=== PATIENT | male | born 1995 | race Caucasian/White ===

== ENCOUNTER 2019-03-18 15:55 | Observation (INO) | payer OTHER ==
[~2019-03-18] VITALS: Ht 172.7 cm; Wt 92.3 kg
[~2019-03-18 15:55] MED LIST: ADDERALL XR30 MG PO; LUVOX25 MG PO
[2019-03-18 16:27] LABS: COLLECTION METHOD CLEAN CATCH
[2019-03-18 16:31] LABS: BASO % 0.4 % (0.0-2.0); EOS # 0.1 (0.0-0.7); EOS % 1.3 % (0-4.0); GRAN # 7.6 (1.4-6.5); GRAN % 80.2 % (42.2-75.2); HEMATOCRIT 50.3 % (42.0-52.0); HEMOGLOBIN 16.6 g/dl (13.5-18.0); LYMPH # 1.1 (1.2-3.4); LYMPH % 11.2 % (20.0-51.0); MEAN CELL VOLUME 81 fl (80.0-100.0); MEAN CORPUSCULAR HEMOGLOBIN 27 pg (27.0-31.0); MEAN CORPUSCULAR HGB CONC 33 g/dl (33.0-37.0); MEAN PLATELET VOLUME 9.2 fl (7.4-10.4); MONO # 0.6 (0.1-0.6); MONO % 6.6 % (1.7-9.3); PLATELET COUNT 274 K/mm3 (130-400); RED BLOOD COUNT 6.23 M/mm3 (4.20-5.60); REDCELL DISTRIBUTION WIDTH-CV 14.5 % (11.5-14.5)
[2019-03-18 16:37] LABS: MUCOUS Present /lpf; PH 6 (5-8); SQUAMOUS EPITHELIAL None Seen /hpf; URINE APPEARANCE Clear; URINE BACTERIA None Seen /hpf; URINE BILIRUBIN Negative (NEGATIVE); URINE BLOOD Negative (NEGATIVE); URINE COLOR Yellow; URINE GLUCOSE Negative (NEGATIVE); URINE KETONE Negative (NEGATIVE); URINE LEUKOCYTE ESTERASE Negative (NEGATIVE); URINE NITRATE Negative (NEGATIVE); URINE PROTEIN(semi-quant) Negative (NEGATIVE); URINE RBC 0-2 /hpf; URINE UROBILINOGEN Negative (NEGATIVE)
[2019-03-18 16:54] LABS: ALBUMIN 4.8 gm/dL (3.5-5.0); BILIRUBIN,TOTAL 0.5 mg/dL (0.0-1.0); CALCIUM 9.8 mg/dL (8.4-10.2); CREATININE, serum 0.65 (0.66-1.25); POTASSIUM 4.3 mmol/L (3.4-5.0); TOTAL PROTEIN 7.7 gm/dL (6.4-8.2)
--- NOTE | 2019-03-18 22:35 | NUR ---
PT ADMITTED FROM PACU FOLLOWING HERNIA REPAIR. PT IS ALERT, OX4; REPORTS PAIN IS CONTROLLED AT THIS TIME. PARENTS ACCOMPANY PT TO ROOM. INCISIONS TO ABDOMEN X3 WITH BANDAIDS IN PLACE, CDI. IVF INFUSING TO R AC WITHOUT ISSUES. PT DENIES ANY NEEDS AT THIS TIME. CALL LIGHT WITHIN REACH.
[2019-03-18 23:16] VITALS: BP 127/78; PULSE 101
[2019-03-18 23:31] VITALS: BP 146/80; PULSE 111
[2019-03-18 23:46] VITALS: BP 140/86; PULSE 105
[2019-03-19] VITALS (12 sets, daily range): BP systolic 105–150; BP diastolic 53–89; PULSE 80–112; TEMP 97.6–100.4
--- NOTE | 2019-03-19 05:47 | NUR ---
PT STOOD AT BEDSIDE WITH MINIMAL ASSIST TO ATTEMPT TO URINATE. PT WAS UNABLE AT THIS TIME. ASSISTED BACK TO BED, CALL LIGHT WITHIN REACH. ICE PACK APPLIED TO ABDOMEN. MOTHER REMAINS AT PT BEDSIDE.
[2019-03-19 06:18] LABS: BASO % 0.3 % (0.0-2.0); EOS # 0.1 (0.0-0.7); EOS % 1.2 % (0-4.0); GRAN # 6.5 (1.4-6.5); GRAN % 75.3 % (42.2-75.2); LYMPH # 1.2 (1.2-3.4); LYMPH % 14.1 % (20.0-51.0); MEAN CELL VOLUME 81 fl (80.0-100.0); MEAN CORPUSCULAR HEMOGLOBIN 27 pg (27.0-31.0); MEAN CORPUSCULAR HGB CONC 33 g/dl (33.0-37.0); MEAN PLATELET VOLUME 9.7 fl (7.4-10.4); MONO # 0.7 (0.1-0.6); MONO % 8.6 % (1.7-9.3); PLATELET COUNT 245 K/mm3 (130-400); RED BLOOD COUNT 5.31 M/mm3 (4.20-5.60); REDCELL DISTRIBUTION WIDTH-CV 14.3 % (11.5-14.5)
[2019-03-19 06:23] LABS: HEMOGLOBIN 14.2 g/dl (13.5-18.0)
--- NOTE | 2019-03-19 06:32 | NUR ---
PT SLEPT AT PERIODS THROUGH THE NIGHT. WOKE UP SEVERAL TIMES EARLY THIS AM REPORTING ABDOMINAL PAIN WITH PEAK AT 10/10, IV PAIN MEDICATIONS WERE ADMINISTERED REQUESTED BY PT AND MOTHER. PO OXYCODONE ALSO ADMINISTERED WITH PT REPORTING THIS MEDICATION DOES NOT WORK FOR HIM. MOTHER REMAINS AT PT BEDSIDE THROUGH THE NIGHT. ICE PACK APPLIED TO ABDOMINAL INCISIONS. INCISIONS ARE COVERED WITH BANDAIDS AND REMAIN CDI. VS REMAIN STABLE. PT IS CURRENTLY RESTING QUIETLY WITH SIGNS OF DISTRESS. CALL LIGHT WITHIN REACH.
[2019-03-19 06:34] LABS: CALCIUM 8.3 mg/dL (8.4-10.2); CREATININE, serum 0.57 (0.66-1.25); POTASSIUM 3.7 mmol/L (3.4-5.0)
--- NOTE | 2019-03-19 09:10 | NUR ---
Initial visit; Shelton and family thanked Creative Recruiter for visit and offering encouragement. Shelton requested that Creative [employer]ruiter keep him in her prayers.
--- NOTE | 2019-03-19 09:41 | NUR ---
Patient was not able to void this am. Notified Dr Ribeiro. It took a little time for patient to agree to a straight catheter. Used a lidocaine uroject before placing the straight catheter. Patient was also given tylenol and roxicodone this am. Explained procedure to patient. Catherized patient and had 1100ml of clear yellow urine returned. Patient tolerated the catherization well. He stated that he feeling better now that it is over. Explained it will take a few hours before he may need to go. Patient and family verbalized understanding. Arianna care provided before and after catheter. No other changes at this time. Call light within reach. Will continue to monitor.
[2019-03-19] MEDS ORDERED: PERCOCET 325 MG1 TA2 PO (17:54)
--- NOTE | 2019-03-19 19:15 | NUR ---
Patient was doing well all afternoon until this time. He is having a cramp/spasm to abdomen. His mother is at bedside. Tried to get patient repositioned to get cramp under control. Also tried to given him a warm blanket. Report given to Clarisa MCGOVERN, she is giving diluded for pain. No other changes at this time. Patient has been voiding without issues since being straight catheterized this am. He is tolerating general diet without nausea. No other changes at this time. Call light within reach.
--- NOTE | 2019-03-19 22:37 | NUR ---
Patient resting in bed, does c/o pain at 4. PRN dilaudid given. Patient call light within reach, will continue to monitor
--- NOTE | 2019-03-20 03:28 | NUR ---
Pt sleeping well in room. Call light within reach. Will continue to monitor
[2019-03-20 04:00] VITALS: BP 125/83; PULSE 92; TEMP 98.3
--- NOTE | 2019-03-20 04:45 | NUR ---
prn dilaudid given to patient per request, wants to stay on top of pain. rates pain 5/10. patient resting in bed with eye mask on. call light within reach
--- NOTE | 2019-03-20 07:55 | NUR ---
Patient laying in bed upon assessment. At beginning of assessment patient is agreeable starting with ibuprofen to manage pain this morning. After assessing abdomen, patient states pain has gone from a 1/10 to a 4/10 and would like to do the dilaudid instead as that has been working well so far. Will continue to encourage PO pain medication in anticipation of discharge. Patient states he is otherwise feeling well and has been passing gas. He is hoping to have a bowel movement today. No further concerns at this time. Call light in reach.
[2019-03-20 08:36] VITALS: BP 121/68; PULSE 64; TEMP 97.8
[2019-03-20 10:09] LABS: BASO # 0.1 (0.0-0.2); BASO % 0.7 % (0.0-2.0); EOS # 0.3 (0.0-0.7); EOS % 3.2 % (0-4.0); GRAN # 5.5 (1.4-6.5); GRAN % 62.4 % (42.2-75.2); HEMATOCRIT 51.6 % (42.0-52.0); LYMPH # 2.2 (1.2-3.4); LYMPH % 25.4 % (20.0-51.0); MEAN CELL VOLUME 82 fl (80.0-100.0); MEAN CORPUSCULAR HEMOGLOBIN 27 pg (27.0-31.0); MEAN CORPUSCULAR HGB CONC 33 g/dl (33.0-37.0); MEAN PLATELET VOLUME 9.5 fl (7.4-10.4); MONO # 0.7 (0.1-0.6); MONO % 8.1 % (1.7-9.3); PLATELET COUNT 255 K/mm3 (130-400); RED BLOOD COUNT 6.32 M/mm3 (4.20-5.60); REDCELL DISTRIBUTION WIDTH-CV 14.6 % (11.5-14.5)
[2019-03-20 10:16] LABS: ALBUMIN 4.5 gm/dL (3.5-5.0); BILIRUBIN,TOTAL 0.5 mg/dL (0.0-1.0); CALCIUM 9.4 mg/dL (8.4-10.2); CREATININE, serum 0.69 (0.66-1.25); POTASSIUM 4.1 mmol/L (3.4-5.0); TOTAL PROTEIN 7.5 gm/dL (6.4-8.2)
[2019-03-20 10:17] LABS: HEMOGLOBIN 16.8 g/dl (13.5-18.0)
[2019-03-20] MEDS ORDERED: FLEXERIL5 MG PO (10:48)
[2019-03-20] MEDS ORDERED: NORCO 325 MG-51 TAB PO (10:53)
[2019-03-20 11:54] VITALS: BP 144/83; PULSE 104; TEMP 98
--- NOTE | 2019-03-20 15:05 | NUR ---
Plan: To return home with his parents: Mother Flavia Pringle([phone]), and father Braulio Franco([phone]) who are also the patients emergency contact. The patient resides in [facility], however he is a student at [employer]. Assess: SW met with Patient while his parents were in the room. Patient did give permission for his parents to be present during this discussion. Patient reported that his PCP is Dr. Kaufman, he does not have a follow up appointnet. Patient reports that he gets his medications from [facility] or [facility] located on [address]. Patient denied having any concerns, however indicated that he would appreciate a call to [employer]([phone]) to verify that he would be absent from school until Friday. Action: [facility] contacted and informed. No additional concerns were noted. Patient was educated on community resources and supports.
--- NOTE | 2019-03-20 16:22 | NUR ---
Patient discharged to home with his parents. All discharge instructions reviewed including information on new medications, calling to make a follow-up appoinment and excuse note written by Dr. Ribeiro. INT removed from right antecubital. All belongings packed up and discharge papers signed. Patient and parents have no further concerns or questions regarding discharge. They know how to call Dr. Ribeiro's office if any questions or concerns arise after discharge. Patient wheeled out to vehicle by this mortgage underwriter.
== END 2019-03-20 16:25 | disposition home or self-care (01) ==
LOC: COL.ER 15:55 → SURG 17:52 → EDBD 17:52 → SURG 17:52
PROVIDERS: Emergency Medicine; Surgery; ADMIT Surgery
DX: K43.0 Incisional hernia with obstruction, without gangrene (principal); K56.609 Unspecified intestinal obstruction, unspecified as to partial versus complete obstruction; K56.51 Intestinal adhesions [bands], with partial obstruction; Z85.47 Personal history of malignant neoplasm of testis; Z90.79 Acquired absence of other genital organ(s); G80.9 Cerebral palsy, unspecified; K55.9 Vascular disorder of intestine, unspecified
CPT/HCPCS: A4314; A9284; C1781; G0378; J0690; J1170; J1885; J2270; J2405; J2704; J3010; J7030; J7120; Q9967